=== PATIENT | female | born 1995 | race Two or more races ===

== ENCOUNTER 2024-03-04 08:42 | Emergency (ER) | payer OTHER ==
[~2024-03-04] VITALS: Ht 149.9 cm; Wt 59.9 kg
[2024-03-04] MEDS ORDERED: PRENA1 TRUE CO1 EACH (09:02)
[2024-03-04] MEDS ORDERED: 0.9 % SODIUM CHLORIDE 1,000 ML IV STA (09:16)
[2024-03-04] MEDS ORDERED: ONDANSETRON HCL 2 MG/ML VIAL IV STA (09:16)
[2024-03-04 10:37] LABS: HEMATOCRIT 36.6 % (36.0-45.00); HEMOGLOBIN 12.8 g/dL (12.0-15.00); MEAN CELL VOLUME 89.9 fL (80.00-100.00); MEAN CORPUSCULAR HEMOGLOBIN 31.4 pg (27.00-32.0); PLATELET COUNT 266 K/uL (150-450); RED BLOOD COUNT 4.07 M/uL (4.00-6.00); RED CELL DISTRIBUTION WIDTH 13.6 % (11.5-14.5)
[2024-03-04 11:21] LABS: CALCIUM 9.1 mg/dL (8.5-10.1); CREATININE SERUM 0.58 mg/dL (0.55-1.02); GFR 123.79; POTASSIUM 3.57 mEq/L (3.5-5.1)
[2024-03-04] MEDS ORDERED: ACETAMINOPHEN 500 MG GEL..CAP PO STA (11:32)
[2024-03-04 11:57] LABS: URINE APPEARANCE Clear; URINE BILIRRUBIN Negative (NEGATIVE); URINE BLOOD Negative; URINE COLOR Yellow; URINE GLUCOSE Negative (NEGATIVE); URINE KETONE Trace (NEGATIVE); URINE LEUKOCYTE Negative; URINE NITRATE Negative; URINE PROTEIN Negative (NEGATIVE); URINE UROBILINOGEN 0.2 E.U./dl
[2024-03-04 12:01] LABS: URINE BACTERIA 615.9 uL (0.0-1933); URINE RBC 8.2 uL (0.0-20.8); URINE WBC 9.4 uL (0.0-23.2)
[2024-03-04 12:05] LABS: URINE CAST 0.15 uL (0.0-1.40)
== END 2024-03-04 15:59 | disposition home or self-care (01) ==
LOC: ER 08:44 → EDBD 08:44 → ER 10:46
PROVIDERS: Emergency Medicine
DX: O20.8 Other hemorrhage in early pregnancy (principal); Z3A.12 12 weeks gestation of pregnancy; Z88.2 Allergy status to sulfonamides; Z88.6 Allergy status to analgesic agent; K29.70 Gastritis, unspecified, without bleeding; Z20.822 Contact with and (suspected) exposure to COVID-19

== ENCOUNTER 2024-03-25 09:11 | Outpatient (CLI) | payer OTHER ==
[~2024-03-25 09:11] MED LIST: PRENA1 TRUE CO1 EACH
== END 2024-03-25 09:16 | disposition home or self-care (01) ==
LOC: PRENATAL 09:11
PROVIDERS: ATTEND Obstetrics & Gynecology Maternal & Fetal Medicine
DX: O26.849 Uterine size-date discrepancy, unspecified trimester (principal); Z14.8 Genetic carrier of other disease; Z3A.15 15 weeks gestation of pregnancy

== ENCOUNTER 2024-05-13 14:06 | Outpatient (CLI) | payer OTHER | END 2024-05-13 14:07 | disposition home or self-care (01) | LOC: PRENATAL 14:06 | PROVIDERS: ATTEND Obstetrics & Gynecology Maternal & Fetal Medicine | DX: O35.3XX0 Maternal care for (suspected) damage to fetus from viral disease in mother, not applicable or unspecified (principal); O44.00 Complete placenta previa NOS or without hemorrhage, unspecified trimester; Z3A.22 22 weeks gestation of pregnancy ==

== ENCOUNTER → 2024-07-24 14:19 | Outpatient (CLI) | payer OTHER | END | disposition home or self-care (01) | LOC: PRENATAL 14:19 | PROVIDERS: ATTEND Obstetrics & Gynecology Maternal & Fetal Medicine | DX: O26.849 Uterine size-date discrepancy, unspecified trimester (principal); O36.8199 Decreased fetal movements, unspecified trimester, other fetus; Z3A.33 33 weeks gestation of pregnancy ==

== ENCOUNTER 2024-09-12 15:36 | Inpatient (IN) | payer OTHER ==
[~2024-09-12] VITALS: Ht 149.9 cm; Wt 74.4 kg
[2024-09-12 15:19] VITALS: BP 137/82
[~2024-09-12 15:36] MED LIST changes: +AMPICILLIN SODIUM 2,000 MG VIAL ONE
[2024-09-12] MEDS ORDERED: RINGERS SOLUTION,LACTATED 1,000 ML IV SCH (16:30)
[2024-09-12] MEDS ORDERED: AMPICILLIN SODIUM 2,000 MG VIAL IV ONE (16:30)
[2024-09-12 16:42] LABS: BASO % 0.4 % (0.1-1.2); EOS # 0.05 (0.04-0.54); EOS % 0.4 % (0.7-7.0); HEMATOCRIT 39.2 % (34.1-44.9); HEMOGLOBIN 13.5 g/dL (11.2-15.7); LYMPH # 1.47 (1.18-3.74); MEAN CORPUSCULAR HEMOGLOBIN 30.8 pg (25.6-32.2); MONO # 0.84 (0.24-0.82); MONO % 6.3 % (4.7-12.5); NEUT # 10.52 (1.56-6.13); NEUT % 78.5 % (34.0-71.1); PLATELET COUNT 263 K/uL (163-369); RED BLOOD COUNT 4.39 M/uL (3.93-5.22); URINE APPEARANCE Clear; URINE BILIRRUBIN Negative (NEGATIVE); URINE BLOOD Negative; URINE COLOR Yellow; URINE GLUCOSE Negative (NEGATIVE); URINE KETONE Negative (NEGATIVE); URINE LEUKOCYTE Negative; URINE NITRATE Negative; URINE PROTEIN Negative (NEGATIVE); URINE UROBILINOGEN 0.2 E.U./dl
[2024-09-12 16:43] LABS: URINE BACTERIA 14.6 uL (0.0-1933); URINE EPITHELIAL CELLS 3.1 uL (0.0-38.8); URINE RBC 5.4 uL (0.0-20.8); URINE WBC 2.8 uL (0.0-23.2)
[2024-09-12] MEDS ORDERED: FOLIC ACID0.8 M1 PO (16:50)
[2024-09-12] MEDS ORDERED: OXYTOCIN 20 UNITS/500ML RL PIGGYBAG IV ONE (16:53)
[2024-09-12] MEDS ORDERED: OXYTOCIN 500 ML IV SCH (17:00)
[2024-09-12] MEDS ORDERED: AMPICILLIN SODIUM 1,000 MG VIAL IV SCH ×2 (17:00→20:00)
[2024-09-12 17:02] LABS: INR 0.94; PROTHROMBIN TIME 10.3 SECONDS (9.0-11.5)
[2024-09-12 17:38] LABS: ALBUMIN 2.9 gm/dL (3.4-5.0); BILIRUBIN TOTAL 0.36 mg/dL (0.3-1.2); CREATININE SERUM 0.68 mg/dL (0.55-1.02); GFR 102.29; GLOBULINA 4.1 G/DL (2.4-3.5); POTASSIUM 4.4 mEq/L (3.5-5.1)
[2024-09-12] MEDS ORDERED: OXYTOCIN 20 UNITS/1000ML RL PIGGYBAG IV ONE (18:03)
[2024-09-12] MEDS ORDERED: ERYTHROMYCIN BASE OPHT 1GM EACH TUBE OP ONE ×2 (18:03→19:29)
[2024-09-12] MEDS ORDERED: CHLORHEXIDINE GLUCONATE 120 ML BOTTLE TOP ONE (18:03)
[2024-09-12] MEDS ORDERED: LIDOCAINE HCL 1% 10ML VIAL ONE (18:03)
[2024-09-12] MEDS ORDERED: OXYTOCIN 10 UNITS/ML VIAL ONE (19:29)
[2024-09-12] MEDS ORDERED: MORPHINE SULFATE 4 MG/ML CARTRIDGE IV PRN (20:45)
[2024-09-12] MEDS ORDERED: MORPHINE SULFATE 4 MG/ML VIAL IV ONE ×2 (22:00→22:30)
[2024-09-12] MEDS ORDERED: AMPICILLIN SODIUM 1,000 MG VIAL ONE (23:46)
[2024-09-13 02:37] VITALS: BP 131/78
[2024-09-13] MEDS ORDERED: OxyCODONE HCL 5 MG TABLET (ROXICODONE) PO PRN (08:30)
[2024-09-13 09:40] VITALS: BP 132/79
[2024-09-13 13:13] VITALS: BP 130/80
[2024-09-13 16:06] VITALS: BP 123/77
[2024-09-14 01:34] VITALS: BP 123/78
[2024-09-14 08:21] VITALS: BP 118/81
[2024-09-14 16:13] VITALS: BP 128/84
[2024-09-15 01:20] VITALS: BP 90/60
[2024-09-15 08:05] VITALS: BP 117/79
== END 2024-09-15 12:48 | disposition home or self-care (01) | DRG 788 ==
LOC: OB/GYN 15:36 → LDR 15:36 → O/R 19:57 → OB/GYN 21:51
PROVIDERS: ADMIT Obstetrics & Gynecology Obstetrics; ATTEND Obstetrics & Gynecology Obstetrics
PROC: 4A1HXCZ Monitoring of Products of Conception, Cardiac Rate, External Approach (ICD-10-PCS; 2024-09-12)
PROC: 10D00Z1 Extraction of Products of Conception, Low, Open Approach (ICD-10-PCS; principal; 2024-09-12 20:45)
DX: O82 Encounter for cesarean delivery without indication (principal); Z3A.39 39 weeks gestation of pregnancy; Z37.0 Single live birth